=== PATIENT | female | born 1960 | race Caucasian/White ===

== ENCOUNTER → 2020-01-30 | Outpatient (CLI) | payer OTHER | LOC: LAB 10:17 | PROVIDERS: ATTEND Orthopaedic Surgery Sports Medicine | DX: Z01.812 Encounter for preprocedural laboratory examination (principal); Z20.828 Contact with and (suspected) exposure to other viral communicable diseases ==

== ENCOUNTER 2020-02-05 08:10 | Day surgery (SDC) | payer OTHER ==
[~2020-02-05] VITALS: Ht 165.1 cm; Wt 54.4 kg
[~2020-02-05 08:10] MED LIST: MIRALAX119 GM PO; MULTI VITAMIN1 EACH PO; PROBIOTIC1 EAC7 PO; VITAMIN D325 MC3 PO
[2020-02-05 08:48] VITALS: BP 158/98
[2020-02-05 10:49] VITALS: BP 158/98
--- NOTE | 2020-02-07 07:14 | O ---
[facility] [place] [address] OPERATIVE REPORT Name: ALIYA COOK Room #: DEP [facility].#: [id number] Admission: 02/05/20 Attend Phys: Jon Jerez MD Discharge: 02/05/20 Date of : 62 Report #: [id number] THIS REPORT FOR: cc: Tono Ohara MD,Tono Jerez,Jon Diez MD ~ CC: Tono Jerez DATE OF SERVICE: 02/05/2020 SURGEON: Jon Jerez MD WAX CUTTER: Lisseth Redmond. PREOPERATIVE DIAGNOSES: 1. Left knee pain. 2. Left knee medial meniscus tear. POSTOPERATIVE DIAGNOSES: 1. Left knee pain. 2. Left knee medial meniscus tear. PROCEDURE: Left knee arthroscopic partial medial meniscectomy. COMPLICATIONS: None. DRAINS: None. SPECIMENS: None. ANESTHESIA: General with LMA. FINDINGS: 1. Intact articular cartilage. 2. Intact lateral compartment. 3. Intact ACL. 4. Unstable flap tear of the posterior horn of the medial meniscus. HISTORY: The patient is a 59-year-old female with persistent progressive left knee pain that had failed conservative measures. She had an acute injury to the knee that resulted in medial meniscus tear and she was indicated for surgical treatment after she had failed conservative measures. Risks, benefits, alternatives and indications of surgery were discussed with her. Risks include but not limited to pain, bleeding, infection, injury to nerves or blood vessels, persistent pain despite surgical intervention, failure of any procedures, [facility] [address] [place] [address] OPERATIVE REPORT Name: ALIYA COOK Room #: DEP [facility] M..#: [id number] Admission: 02/05/20 Attend Phys: Jon Jerez MD Discharge: 02/05/20 Date of : 62 Report #: [id number] progression of any preexisting chondral injury, stiffness, need for further surgery as well as complications related to anesthesia. Despite these risks, she wished to proceed. PROCEDURE IN DETAIL: After left lower extremity was correctly identified in the preoperative holding area as the operative extremity, the patient was taken to the operating room where general anesthesia with LMA was induced without complication. She was padded appropriately. Prophylactic antibiotics were administered at appropriate time. Tourniquet was applied to the left leg. Left lower extremity was then prepped and draped in standard sterile fashion. Timeout procedure performed. Esmarch was used. Tourniquet inflated to 250 mmHg. A standard anterolateral viewing portal was established followed by anteromedial working portal. Diagnostic arthroscopy revealed the above findings. The patellofemoral compartment was normal. The medial compartment was normal other than the medial meniscus tear and the lateral compartment was normal. The ACL and PCL were intact. The unstable medial meniscus tear was resected with biter and a shaver and debrided until stable parameter had been achieved, approximately 30% of meniscal volume was resected. After this had been completed, I placed the camera in the anteromedial portal and made the anterolateral portal, the working portal and completed the contouring of the partial meniscectomy anteriorly. All meniscal debris was then thoroughly lavaged out of the knee. The arthroscopic effusion was drained. The instruments were removed. Portal sites were closed with Monocryl and local anesthetic was infiltrated in the soft tissues for postoperative pain control. Sterile dressing was applied followed by compression stocking. The patient was awakened from anesthesia and taken to recovery room in stable condition. No complications. All counts were correct. <ELECTRONICALLY SIGNED> By: Jon Jerez MD 02/07/20 0714 [id number] [id number] Jon Jerez MD /nt
== END 2020-02-05 12:15 | disposition home or self-care (01) ==
LOC: TBA 08:10 → OR 08:10 → TBA 08:12 → OR 09:04
PROVIDERS: ATTEND Orthopaedic Surgery Sports Medicine
DX: M25.562 Pain in left knee (principal); G89.29 Other chronic pain; M23.222 Derangement of posterior horn of medial meniscus due to old tear or injury, left knee; F41.9 Anxiety disorder, unspecified; Z98.890 Other specified postprocedural states; Z79.899 Other long term (current) drug therapy; Z90.49 Acquired absence of other specified parts of digestive tract; Z88.8 Allergy status to other drugs, medicaments and biological substances
CPT/HCPCS: 50010; 50101; 50405; 56527; 57103; 57179; 62110; 62900; 70005